=== PATIENT | male | born 1965 | race Caucasian/White ===

== ENCOUNTER 2018-01-02 17:29 | Observation (INO) | payer SELFPAY ==
--- OUTSIDE RECORDS SUMMARY | 2018-01-02 17:31 | XMS REPORT ---
:1965 Author Organization [facility] Address [address] [place] [address] [address] Care Team Providers Name Role Phone DAMION LOWRY Unavailable Unavailable Problems This patient has no known problems. Allergies, Adverse Reactions, Alerts This patient has no known allergies or adverse reactions. Medications This patient has no known medications. Encounters Start End Encounter Admission Attending Care Care Encounter Date/Time Date/Time Type Type Clinicians Facility Department ID 2016-12-08 2016-12-08 Patience E SHREYAS LOWRY [facility] [id number] 21:26:00 21:42:00 DAMION
[2018-01-02] MEDS ORDERED: HYDROCODONE/APAP 10/325 TAB ONE (18:05)
--- NOTE | 2018-01-02 18:44 | EDPHYS ---
Physician Documentation [facility] Name: Dwaine Harrell Age: 52 yrs Sex: Male : 1965 Arrival Date: 01/02/2018 Time: 17:30 Bed 5 Private MD: ED Physician Manjit Medrano HPI: 01/02 17:54 This 52 yrs old Male presents to ER via Unassigned with complaints of Foreign kb Body - Nail in Hand. 17:54 The patient or guardian reports the patient has a suspected foreign body, of the palm kb of left hand. The reported likely foreign body is a nail. Onset: The symptoms/episode began/occurred just prior to arrival. Current symptoms: foreign body sensation. Treatment Prior to Arrival: none. The patient has not experienced similar symptoms in the past. The patient has not recently seen a physician. Historical: - Allergies: 18:04 No Known Allergies; aj - Home Meds: 18:04 None [Active]; aj - PMHx: 18:04 None; aj - PSHx: 18:04 None; aj - Immunization history:: Adult Immunizations up to date. - Social history:: Smoking status: Patient/guardian denies using tobacco. - Ebola Screening: : Patient negative for fever greater than or equal to 101.5 degrees Fahrenheit, and additional compatible Ebola Virus Disease symptoms Patient denies exposure to infectious person Patient denies travel to an Ebola-affected area in the 21 days before illness onset No symptoms or risks identified at this time. ROS: 17:54 Constitutional: Negative for fever, chills, and weight loss, Cardiovascular: Negative kb for chest pain, palpitations, and edema, Respiratory: Negative for shortness of breath, cough, wheezing, and pleuritic chest pain, Abdomen/GI: Negative for abdominal pain, nausea, vomiting, diarrhea, and constipation, Neuro: Negative for headache, weakness, numbness, tingling, and seizure. 17:54 MS/extremity: Positive for pain, of the left hand. 17:54 Skin: Positive for puncture. Exam: 17:54 Constitutional: This is a well developed, well nourished patient who is awake, alert, kb and in no acute distress. Head/Face: Normocephalic, atraumatic. Chest/axilla: Normal chest wall appearance and motion. Nontender with no deformity. No lesions are appreciated. Cardiovascular: Regular rate and rhythm with a normal S1 and S2. No gallops, murmurs, or rubs. Normal PMI, no JVD. No pulse deficits. Respiratory: Lungs have equal breath sounds bilaterally, clear to auscultation and percussion. No rales, rhonchi or wheezes noted. No increased work of breathing, no retractions or nasal flaring. Abdomen/GI: Soft, non-tender, with normal bowel sounds. No distension or tympany. No guarding or rebound. No evidence of tenderness throughout. MS/ Extremity: Pulses equal, no cyanosis. Neurovascular intact. Full, normal range of motion. Neuro: Awake and alert, GCS 15, oriented to person, place, time, and situation. Cranial nerves II-XII grossly intact. Motor strength 5/5 in all extremities. Sensory grossly intact. Cerebellar exam normal. Normal gait. 17:54 Skin: injury, puncture(s), that are deep, of the left hand. Vital Signs: 17:40 BP 137 / 86; Pulse 58; Resp 17; Temp 97.6; Pulse Ox 99% on R/A; Weight 81.65 kg; Height aj 5 ft. 8 in. (172.72 cm); 19:18 BP 118 / 76; Pulse 62; Resp 18; Temp 98.3; Pulse Ox 99% on R/A; Pain 9/10; ch 17:40 Body Mass Index 27.37 (81.65 kg, 172.72 cm) aj MDM: 17:34 Patient medically screened. kb 17:52 Data reviewed: vital signs, nurses notes. Data interpreted: Pulse oximetry: on room air kb is 100 %. Interpretation: normal. Counseling: I had a detailed discussion with the patient and/or guardian regarding: the historical points, exam findings, and any diagnostic results supporting the discharge/admit diagnosis, radiology results, the need for further work-up and treatment in the hospital. Physician consultation: Gómez Bowman MD regarding consult, patient's condition, and will see patient in inpatient room. 01/02 18:26 Order name: CBC with Diff; Complete Time: 19:29 kb 01/02 18:26 Order name: Basic Metabolic Panel; Complete Time: 19:04 kb 01/02 17:38 Order name: Hand Left 3 View XRAY; Complete Time: 18:49 kb 01/02 18:26 Order name: Chest Pa And Lat (2 Views) XRAY; Complete Time: 19:41 kb 01/02 18:26 Order name: EKG; Complete Time: 18:26 kb 01/02 18:26 Order name: EKG - Nurse/Tech; Complete Time: 18:49 kb 01/02 19:24 Order name: CONS Physician Consult EDMS Administered Medications: 18:04 Drug: [place] 10 mg-325 mg 1 tabs Route: PO; 18:23 Follow up: Response: No adverse reaction 18:48 Drug: Ancef 1 grams Route: IVPB; Site: right forearm; 18:49 Follow up: IV Status: Completed infusion; IV Intake: 20ml ; administered over 5 min Disposition: 01/02/18 18:43 Hospitalization ordered by Heather Hurtado for Observation. Preliminary diagnosis is Puncture wound with foreign body of left hand. - Bed requested for Telemetry/MedSurg (observation). - Status is Observation. fc - Condition is Stable. - Problem is new. - Symptoms are unchanged. UTI on Admission? No Signatures: Dispatcher [employer] EDWI Sirisha Garcia, FURNITURE DIPPER-C FURNITURE DIPPER-Robina Jay, RN RN Mariah Parisi RN RN kl Myers, Amanda, RN RN Sari Wolf RN RN Corrections: (The following items were deleted from the chart) 18:04 17:40 Immunization history: Adult Immunizations up to date, [facility] 19:48 18:43 Hospitalization Ordered by Heather Hurtado MD for Observation. Preliminary kl diagnosis is Puncture wound with foreign body of left hand. Bed requested for Telemetry/MedSurg (observation). Status is Observation. Condition is Stable. Problem is new. Symptoms are unchanged. UTI on Admission? No. kb 20:18 19:48 01/02/2018 18:43 Hospitalization Ordered by Heather Hurtado MD for Observation. fc Preliminary diagnosis is Puncture wound with foreign body of left hand. Bed requested for Telemetry/MedSurg (observation). Status is Observation. Condition is Stable. Problem is new. Symptoms are unchanged. UTI on Admission? No. kl
--- NOTE | 2018-01-02 18:44 | ER ---
Nurse's Notes [facility] Name: Dwaine Harrell Age: 52 yrs Sex: Male : 1965 Arrival Date: 01/02/2018 Time: 17:30 Bed 5 Private MD: Diagnosis: Puncture wound with foreign body of left hand Presentation: 01/02 17:40 Method Of Arrival: Ambulatory 17:40 Transition of care: patient was not received from another setting of care. Onset of aj symptoms was January 02, 2018. Risk Assessment: Do you want to hurt yourself or someone else? Patient reports no desire to harm self or others. Initial Sepsis Screen: Does the patient meet any 2 criteria? No. Patient's initial sepsis screen is negative. Does the patient have a suspected source of infection? No. Patient's initial sepsis screen is negative. Care prior to arrival: None. 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 Triage Assessment: 17:40 General: Appears in no apparent distress. uncomfortable, Behavior is calm, cooperative, aj appropriate for age. Pain: Complains of pain in heel of left hand. Neuro: Level of Consciousness is awake, alert, obeys commands, Oriented to person, place, time, situation, Appropriate for age. Respiratory: Airway is patent Respiratory effort is even, unlabored, Respiratory pattern is regular, symmetrical. Derm: Skin is intact, is healthy with good turgor, Skin is pink, warm \T\ dry. normal. Injury Description: Foreign body is located heel of left hand is nail was sustained 30-60 minutes ago. Historical: - Allergies: 18:04 No Known Allergies; aj - Home Meds: 18:04 None [Active]; aj - PMHx: 18:04 None; aj - PSHx: 18:04 None; aj - Immunization history:: Adult Immunizations up to date. - Social history:: Smoking status: Patient/guardian denies using tobacco. - Ebola Screening: : Patient negative for fever greater than or equal to 101.5 degrees Fahrenheit, and additional compatible Ebola Virus Disease symptoms Patient denies exposure to infectious person Patient denies travel to an Ebola-affected area in the 21 days before illness onset No symptoms or risks identified at this time. Screenin:21 Abuse screen: Denies threats or abuse. Denies injuries from another. Nutritional ch screening: No deficits noted. On. Tuberculosis screening: No symptoms or risk factors identified. Fall Risk None identified. Assessment: 18:21 General: Appears in no apparent distress. uncomfortable, Behavior is calm, cooperative, ch appropriate for age. Pain: Complains of pain in left hand. Neuro: No deficits noted. Respiratory: No deficits noted. GI: No signs and/or symptoms were reported involving the gastrointestinal system. Derm: pt has hole in heel of L hand, and slight swelling to the hand. Musculoskeletal: Circulation, motion, and sensation intact. Capillary refill < 3 seconds, in bilateral fingers. toes. Injury Description: Foreign body is located left hand is nail was sustained 1-2 hours ago. 18:50 Reassessment: Patient appears in no apparent distress at this time. Patient and/or ch family updated on plan of care and expected duration. Pain level reassessed. Patient is alert, oriented x 3, equal unlabored respirations, skin warm/dry/pink. Vital Signs: 17:40 BP 137 / 86; Pulse 58; Resp 17; Temp 97.6; Pulse Ox 99% on R/A; Weight 81.65 kg; Height aj 5 ft. 8 in. (172.72 cm); 19:18 BP 118 / 76; Pulse 62; Resp 18; Temp 98.3; Pulse Ox 99% on R/A; Pain 9/10; ch 17:40 Body Mass Index 27.37 (81.65 kg, 172.72 cm) ED Course: 17:30 Patient arrived in ED. as 17:34 Sirisha Garcia FNP-C is PHCP. kb 17:34 Manjit Medrano MD is Attending Physician. kb 17:40 Arm band placed on left wrist. Patient placed in an exam room, on a stretcher. aj 17:45 Hand Left 3 View XRAY In Process Unspecified. EDMS 17:56 Robina Santizo, EMIL is Primary Nurse. 18:02 Triage completed. aj 18:21 No apparent distress. Resting quietly. ch 18:21 Patient has correct armband on for positive identification. Bed in low position. Call light in reach. Side rails up X 1. Adult w/ patient. Pulse ox on. NIBP on. 18:21 No provider procedures requiring assistance completed. 18:42 Heather Hurtado MD is Hospitalizing Provider. kb 18:53 Chest Pa And Lat (2 Views) XRAY In Process Unspecified. EDMS 19:15 Inserted saline lock: 20 gauge in right antecubital area, using aseptic technique. fc ,using aseptic technique. done on day shift. 19:18 Report given to Julianne Perales 20:00 Patient admitted, IV remains in place. fc Administered Medications: 18:04 Drug: [place] 10 mg-325 mg 1 tabs Route: PO; aj 18:23 Follow up: Response: No adverse reaction 18:48 Drug: Ancef 1 grams Route: IVPB; Site: right forearm; 18:49 Follow up: IV Status: Completed infusion; IV Intake: 20ml ; administered over 5 min ch Intake: 18:49 IV: 20ml; Total: 20ml. Outcome: 18:43 Decision to Hospitalize by Provider. kb 20:00 Admitted to Med/surg accompanied by tech, room 416, with chart, Report called to Pj Barth RN 20:00 Condition: good 20:00 Discharge instructions given to patient, family, Instructed on the need for admit, Demonstrated understanding of instructions. 20:18 Patient left the ED. Signatures: Dispatcher [employer] EDMS Sirisha Garcia, DIGITAL CONTENT MARKETING MANAGER-C DIGITAL CONTENT MARKETING MANAGER-Robina Jay, RN RN Patsy Denton RN RN Sari Alonso RN Kemi Roberts as Corrections: (The following items were deleted from the chart) 18:04 17:40 Immunization history: Adult Immunizations up to date, aj moe 18:37 18:21 Patient did not have IV access during this emergency room visit. fc
--- NOTE | 2018-01-02 18:44 | RAD REPORT ---
EXAM DESCRIPTION: RAD - Hand Left 3 View - 01/02/2018 5:46 pm CLINICAL HISTORY: Nail gun injury, foreign body in the hand COMPARISON: None. FINDINGS: A curved or bent nail is present in the soft tissues adjacent to the third metacarpal shaf t. No fracture or acute bone component seen. Two punctate hyperdensities near the second metacarpal a re not believed to be bone fragments related to the injury. No joint abnormality. IMPRESSION: Nail gun injury with the curved orbit nail in the soft tissues between the second and th ird metacarpal bones. No acute bone finding confirmed.
[2018-01-02] MEDS ORDERED: CEFAZOLIN/SWI 1gm 1 GM/10 ML SYR ONE ×2 (18:45→23:15)
[2018-01-02 19:00] LABS: Absolute Lymphocytes (CBC) 1.4 K/uL (0.7-4.9); Absolute Monocytes 0.8 K/uL (0.1-1.3); Absolute Neutrophil 7.7 K/uL (1.8-8.0); Basophils % 1.1 % (0-1.3); Eosinophils % 1.9 % (0-4.4); Hematocrit 45.6 % (39.6-49.0); Lymphocytes % 14.1 % (15.3-44.8); MCH 30.8 pg (27.0-35.0); MPV 8.1 fL (7.6-11.3); Monocytes % 7.7 % (3.3-12.3)
[2018-01-02 19:02] LABS: Potassium 4.6 mmol/L (3.5-5.1)
--- NOTE | 2018-01-02 19:38 | RAD REPORT ---
EXAM DESCRIPTION: RAD - Chest Pa And Lat (2 Views) - 01/02/2018 6:57 pm CLINICAL HISTORY: Preop chest, soft tissue foreign body removal COMPARISON: None. TECHNIQUE: PA and lateral views of the chest were obtained. FINDINGS: The lungs are clear. Heart size is normal and central vasculature is within normal limit s. No pleural effusion or pneumothorax seen. No acute bony finding noted. No aortic abnormality. IMPRESSION: No acute cardiopulmonary process.
--- NOTE | 2018-01-02 20:17 | P.HP ---
Certification for Inpatient Patient admitted to: Observation With expected LOS: <2 Midnights Practitioner: I am a practitioner with admitting privileges, knowledge of patient current condition, hospital course, and medical plan of care. Services: Services provided to patient in accordance with Admission requirements found in Title 42 Section 412.3 of the Code of Federal Regulations Patient History Date of Service: 01/02/18 Reason for admission: left hand foreign body History of Present Illness: Mr Harrell is a 52 years old male who was working with a nail gun today when accidentally shot on his left hand. Subsequently the patient was feeling severe pain. XR was remarkable for a curved orbit nail in the soft tissues between the second and third metacarpal bones. The patient is on moderate pain. No fever or chills. Allergies No Known Allergies Allergy (Verified 01/02/18 19:54) Home medications list reviewed: Yes Home Medications: NK [No Home Meds] 01/02/18 - Past Medical/Surgical History Has patient received pneumonia vaccine in the past: No Diabetic: No Past Medical History: Reviewed- Non-Contributory Past Surgical History: Reviewed- Non-Contributory - Family History Family History: Reviewed- Non-Contributory - Family History Father -: Diabetes Mother -: Diabetes - Social History Smoking Status: Current every day smoker Counseled patient to stop smoking for: less than 10 minutes Alcohol use: No CD- Drugs: No Caffeine use: Yes Place of Residence: Home Review of Systems 10-point ROS is otherwise unremarkable Physical Examination - Physical Exam General: Alert, In no apparent distress HEENT: Atraumatic, PERRLA, Mucous membr. moist/pink, EOMI, Sclerae nonicteric Neck: Supple, 2+ carotid pulse no bruit, No LAD, Without JVD or thyroid abnormality Respiratory: Clear to auscultation bilaterally, Normal air movement Cardiovascular: Regular rate/rhythm, Normal S1 S2 Gastrointestinal: Normal bowel sounds, No tenderness Musculoskeletal: No tenderness, Swelling (left hand), Tenderness (left hand) Integumentary: No rashes, Other Neurological: Normal gait, Normal speech, Normal strength at 5/5 x4 extr, Normal tone, Normal affect Lymphatics: No axilla or inguinal lymphadenopathy - Studies Laboratory Data (last 24 hrs) 01/02/18 18:30: Sodium 139, Potassium 4.6, BUN 27 H, Creatinine 1.40 H, Glucose 90 01/02/18 18:30: WBC 10.2, Hgb 15.1, Hct 45.6, Plt Count 278 Assessment and Plan - Problems (Diagnosis) (1) Foreign body (FB) in soft tissue Current Visit: Yes Status: Acute (2) Acute renal injury Current Visit: Yes Status: Acute - Plan The patient will be started on antibiotic prophylactic, keep NPO, IV fluids for acute renal failure. Dr Bowman will take him to OR in AM for foreign body remove. - Advance Directives Does patient have a Living Will: No Does patient have a Durable POA for Healthcare: No
[2018-01-02 20:31] VITALS: BMI 28.1
[2018-01-02] MEDS ORDERED: ONDANSETRON 4 MG/2 ML VIAL IV PRN (20:58)
[2018-01-02] MEDS ORDERED: MORPHINE 2 MG/ML SYR IV PRN (20:58)
[2018-01-02] MEDS ORDERED: ACETAMINOPHEN 500 MG TAB PO PRN (20:58)
[2018-01-02] MEDS: NA CHLORIDE 0.9% 1,000 ML IV SCH (21:42)
[2018-01-03] MEDS: CEFAZOLIN/NS 1gm 1 GM/50 ML BAG IVPB SCH ×2 (00:27→09:00)
[2018-01-03] MEDS: NA CHLORIDE 0.9% 1,000 ML IV SCH (01:22)
[2018-01-03 06:10] LABS: Absolute Lymphocytes (CBC) 2.9 K/uL (0.7-4.9); Absolute Monocytes 0.8 K/uL (0.1-1.3); Absolute Neutrophil 4.2 K/uL (1.8-8.0); Basophils % 0.8 % (0-1.3); Eosinophils % 3.6 % (0-4.4); Hematocrit 43.3 % (39.6-49.0); Lymphocytes % 35.1 % (15.3-44.8); MCH 31.4 pg (27.0-35.0); MCV 93.3 fL (80-100); MPV 7.8 fL (7.6-11.3); Monocytes % 10.3 % (3.3-12.3); RBC Red Blood Cell Count 4.64 M/uL (4.33-5.43)
[2018-01-03 06:20] LABS: Potassium 4.1 mmol/L (3.5-5.1)
[2018-01-03] MEDS ORDERED: FENTANYL CITR 100 MCG/2 ML ONE (07:51)
[2018-01-03] MEDS ORDERED: PROPOFOL 200 MG/20 ML VIAL IV ONE (07:51)
[2018-01-03] MEDS ORDERED: Ringers Lactate 1,000 ML IV ONE (07:54)
[2018-01-03] MEDS ORDERED: CEFAZOLIN SODIUM 1 GM/VIAL ONE (08:22)
[2018-01-03] MEDS ORDERED: KETOROLAC 30 MG/ML INJ ONE (08:35)
[2018-01-03] MEDS ORDERED: ONDANSETRON HCL 40 MG/20 ML VIAL ONE (08:36)
[2018-01-03] MEDS ORDERED: GLYCOPYRROLATE 0.2 MG/ML SYR ONE (08:40)
--- NOTE | 2018-01-03 08:59 | P.DS ---
Admission Date: 01/02/18 Discharge Date: 01/03/18 Primary Care Provider: None Disposition: ROUTINE DISCHARGE Discharge Condition: GOOD Reason for Admission: left hand foreign body Consultations: Hand Surgeon/Plastics-Dr. Bowman Procedures: X-ray left hand: FINDINGS: A curved or bent nail is present in the soft tissues adjacent to the third metacarpal shaft. No fracture or acute bone component seen. Two punctate hyperdensities near the second metacarpal are not believed to be bone fragments related to the injury. No joint abnormality. IMPRESSION: Nail gun injury with the curved orbit nail in the soft tissues between the second and third metacarpal bones. No acute bone finding confirmed. Surgery: Removal of foreign body-nail to the left hand Medical problem list: Nail gun injury with foreign body-nail in soft tissues between the 2nd and 3rd metacarpal bones status post removal Renal insufficiency likely from dehydration, resolved Brief History of Present Illness: 52-year-old male presented emergency room after a nail gun injury. He was working within air gun. While handling the air gun a nail was projected in to the hand. The nail remained in the soft tissue of the left hand. Patient came to the ER for further evaluation. This was identified on x-ray. Patient was admitted for further evaluation and treatment. Hospital Course: Patient presented with nail gun injury. Findings indicated a curved/bent nail in the soft tissues adjacent to the 2nd and 3rd metacarpal shaft. Patient was admitted for further evaluation and treatment. Patient was evaluated by plastic surgery/Hand surgery. Patient was taken to the operating room for removal. Patient tolerated procedure well. Patient will continue with Bactrim DS 1 pill twice daily for 10 days. Tylenol #3 1 pill 3 times a day as needed for pain will be provided. Both prescriptions will be provided by plastic surgery. Wound care will be continued including cleaning area with antibacterial soap and water. He may apply Bactroban ointment to the area. Recommendations for the patient to follow up with hand surgery/plastic surgery within 1 week. Schedule appointment is for Friday. Patient also presented with mild renal insufficiency likely from dehydration. Patient received IV fluids. This resolved. Recommendation is to recheck lab-BMP in 1 week to monitor resolution. Vital Signs/Physical Exam: Temp Pulse Resp BP Pulse Ox 98 F 57 16 108/59 L 100 01/03/18 04:00 01/03/18 04:00 01/03/18 04:00 01/03/18 04:00 01/03/18 04:00 General: Alert, In no apparent distress, Oriented x3, Cooperative HEENT: Atraumatic, Normocephalic, Mucous membr. moist/pink Neck: Supple, No Thyromegaly Respiratory: Clear to auscultation bilaterally, Normal air movement Cardiovascular: Normal pulses, Regular rate/rhythm Gastrointestinal: Normal bowel sounds, Soft and benign, Non-distended, No tenderness, No masses Musculoskeletal: Other (Swelling to the left hand noted. Puncture injury noted) Integumentary: Other (As above) Neurological: Normal speech, Normal strength at 5/5 x4 extr, Normal tone, Normal affect Lymphatics: No axilla or inguinal lymphadenopathy Laboratory Data at Discharge: WBC 8.3 K/uL (4.3-10.9) D 01/03/18 05:30 Hgb 14.6 g/dL (13.6-17.9) 01/03/18 05:30 Hct 43.3 % (39.6-49.0) 01/03/18 05:30 Plt Count 274 K/uL (152-406) 01/03/18 05:30 Sodium 141 mmol/L (136-145) 01/03/18 05:30 Potassium 4.1 mmol/L (3.5-5.1) 01/03/18 05:30 BUN 22 mg/dL (7-18) H 01/03/18 05:30 Creatinine 1.10 mg/dL (0.55-1.3) 01/03/18 05:30 Glucose 101 mg/dL (74-106) 01/03/18 05:30 Home Medications: Codeine/APAP [Tylenol W/Codeine #3 tab] 1 tab PO Q4H PRN #30 tab 01/03/18 Sulfamethoxazole/Trimethoprim [Bactrim Ds Tablet] 1 each PO Q12H #20 tablet 12/13 New Medications: Codeine/APAP [Tylenol W/Codeine #3 tab] 1 tab PO Q4H PRN #30 tab PRN Reason: Pain Sulfamethoxazole/Trimethoprim [Bactrim Ds Tablet] 1 each PO Q12H #20 tablet Patient Discharge Instructions: 1. Patient will need to follow up with a PCP to establish care and follow up this hospitalization. 2. Patient presented with nail gun injury. Findings indicated a curved/bent nail in the soft tissues adjacent to the 2nd and 3rd metacarpal shaft. Patient was admitted for further evaluation and treatment. Patient was evaluated by plastic surgery/ Hand surgery. Patient was taken to the operating room for removal. Patient tolerated procedure well. At discharge patient will follow up with Hand surgery on Friday to follow up this hospitalization. At discharge, Patient will continue with Bactrim DS 1 pill twice daily for 10 days. Patient will also be provided Tylenol #3 1 pill 3 times a day as needed for pain. Prescriptions will be provided by plastic surgery. Wound care will be continued including cleaning area with antibacterial soap and water. He may apply Bactroban ointment to the area. 3. Patient also presented with mild renal insufficiency likely from dehydration. Patient received IV fluids. This resolved. Recommendation is to recheck lab-BMP in 1 week to monitor resolution. Diet: Regular Activity: Ad monae Time spent managing pt's care (in minutes): 55
[2018-01-03 09:46] VITALS: TEMP 97.8; O2SAT 98
--- NOTE | 2018-01-03 09:49 | EKG ---
Test Date: 2018-01-02 Test Time: 18:40:51 [place]: KEVIN MEASUREMENT RESULTS: Intervals: Rate: 54 [place]: 168 QRSD: 86 QT: 428 QTc: 405 [place]: P: 43 [place]: 168 QRS: -33 T: -2 INTERPRETIVE STATEMENTS: Sinus bradycardia Left axis deviation Septal infarct, age undetermined Abnormal ECG No previous ECG available for comparison Electronically Signed On 01-03-18 02:14:27 CDT by Jeffy Amaro
[2018-01-03 12:24] VITALS: BP 123/84
[2018-01-03] MEDS ORDERED: CEFAZOLIN/SWI 1gm 1 GM/10 ML SYR IV SCH (17:00)
--- NOTE | 2018-01-05 08:22 | OP ---
Surgeon: Gómez Bowman MD Preoperative Diagnosis: Foreign body to the left hand. Postoperative Diagnosis: Foreign body to the left hand. Procedure Performed: Debridement of skin and subcutaneous tissue, carpal tunnel release, removal of foreign body removal. Anesthesia: General. Procedure In Detail: After satisfactory induction of general anesthesia, left hand was prepped with Betadine scrub, Betadine paint, dry sterile drapes placed in the usual manner. The arm was elevated and exsanguinated with Esmarch. Tourniquet inflated to 250 mmHg. An elliptical incision was made over the entry site over the palm third metacarpal base regions. Proximal and distal dissection was performed similar to a carpal tunnel incision . Dissection proceded down to the transverse carpal ligament. Then median nerve was identified and retracted out. The wounds were jet lavaged, irrigated with 3 L of dilute Betadine solution. Tourniquet released. Electrocautery was used for hemostasis. Wound was closed with 4-0 Prolene in vertical mattress simple sutures. Dressed with Xeroform, 2 inch Samanta, Kerlix, and a splint to hold the wrist in 10 degrees of dorsiflexion. The patient the tolerated the procedure well and returned to Recovery. RADHA/YOBANY Voice ID: [id number] Report ID: [id number] NIGHAT
== END 2018-01-03 14:48 | disposition home or self-care (01) ==
LOC: ER 17:29 → ERHOLD 19:22 → 4TH 19:58
PROVIDERS: ADMIT Internal Medicine; ATTEND Family Medicine
PROC: 01N50ZZ Release Median Nerve, Open Approach (ICD-10-PCS; 2018-01-03)
PROC: 0JCK0ZZ Extirpation of Matter from Left Hand Subcutaneous Tissue and Fascia, Open Approach (ICD-10-PCS; principal; 2018-01-03 08:00)
DX: S61.442A Puncture wound with foreign body of left hand, initial encounter (principal); W45.0XXA Nail entering through skin, initial encounter; W29.4XXA Contact with nail gun, initial encounter; Y93.89 Activity, other specified; F17.200 Nicotine dependence, unspecified, uncomplicated; N28.9 Disorder of kidney and ureter, unspecified; E86.0 Dehydration
CPT/HCPCS: 36415; 71046; 80048; 85025; 88304; 93005; 96374; 99285; G0378; J0690; J2270; J2405; J3010; J7030